=== PATIENT | female | born 1990 | race Caucasian/White ===

== ENCOUNTER 2018-12-26 16:37 | Emergency (ER) | payer MEDICAID ==
[~2018-12-26] VITALS: Ht 167.6 cm; Wt 91.6 kg
[2018-12-26 16:46] VITALS: Ht 167.6 cm; Wt 91.6 kg
[2018-12-26 21:06] VITALS: BP 101/57
== END 2018-12-26 21:06 | disposition home or self-care (01) ==
LOC: ED 16:37
DX: S80.12XA Contusion of left lower leg, initial encounter (principal); G89.29 Other chronic pain; F17.210 Nicotine dependence, cigarettes, uncomplicated; Z71.6 Tobacco abuse counseling; Z88.0 Allergy status to penicillin; V48.5XXA Car driver injured in noncollision transport accident in traffic accident, initial encounter; Y93.I9 Activity, other involving external motion; Y92.488 Other paved roadways as the place of occurrence of the external cause; Y99.8 Other external cause status
CPT/HCPCS: 99406; Q0092